=== PATIENT | female | born 1965 | race Two or more races ===

== ENCOUNTER 2024-12-09 16:40 | Emergency (ER) | payer SELFPAY ==
[~2024-12-09] VITALS: Ht 127 cm; Wt 76.0 kg
[2024-12-09 17:00] VITALS: BP 139/81; PULSE 86; RESP 18; TEMP 98; O2SAT 96
--- NOTE | 2024-12-09 17:38 | ED.PDOC ---
History of Present Illness HPI Comments 59-year-old woman presents with 1 week of worsening blurry vision in both eyes. 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 who recommended patient come to the ER for further ophthalmologic evaluation Chief Complaint: Eye Problem Time Seen by MD: 16:46 Primary Care Provider: NONE Allergies: Coded Allergies: NO KNOWN ALLERGIES (Unverified , 12/09/24) Mode of Arrival: Ambulatory Physical Exam General Appearance: No Apparent Distress HEENT: PERRL/EOMI, Other (Patient reports blurry vision biltarally) Neck: Normal Inspection Respiratory: No Respiratory Distress Cardiovascular: No Edema Breast Exam: Deferred Gastrointestinal: Non Tender Genitalia: Deferred Pelvic: Deferred Rectal: Deferred Extremities: Normal range of motion Neurologic: No Motor Deficits Cerebellar Function: NOT DONE Reflexes: NOT DONE Skin: Normal Color Lymphatic: NOT DONE Was a procedure done? Was a procedure done?: No Differential Dx Considerations may include: eye infection, retinal detachment X-Ray, Labs, Meds, VS Vital Signs Date Time Temp Pulse Resp B/P (MAP) Pulse Ox O2 Delivery O2 Flow Rate FiO2 12/09/24 17:00 98.0 86 18 139/81 (100) 96 98.0 Time of 1ST Reevaluation: 01:45 Reevaluation 1ST: Unchanged Patient Education/Counseling: Diagnosis, Treatment Family Education/Counseling: No Family Present Departure 1 Departure Time of Disposition: 01:45 (Patient eloped after hearing we do not have opthalmology here.) Impression: Primary Impression: Blurry vision, bilateral Disposition: 07 LEFT AWOL/ELOPED Condition: Serious Critical Care Note Critical Care Time?: No Stability Stability form required: KARAN Benedict MD Dec 09, 2024 17:38
== END 2024-12-09 17:37 | disposition left against medical advice (07) ==
LOC: ER 16:40
DX: H53.8 Other visual disturbances (principal)